=== PATIENT | female | born 1945 | race Caucasian/White ===

== ENCOUNTER → 2018-09-23 18:10 | Outpatient (CLI) | payer MEDICARE, OTHER | END | disposition home or self-care (01) | LOC: D.MAMMO 11:30 | DX: N63.11 Unspecified lump in the right breast, upper outer quadrant (principal); R92.8 Other abnormal and inconclusive findings on diagnostic imaging of breast ==

== ENCOUNTER 2019-12-27 16:39 | Inpatient (IN) | payer MEDICARE, OTHER ==
[~2019-12-27] VITALS: Ht 152.4 cm; Wt 66.7 kg
[2019-12-27] MEDS ORDERED: MEDROL DOSE PACK4 MG PO (16:48)
[2019-12-27] MEDS ORDERED: COZAAR100 MG PO (16:48)
[2019-12-27] MEDS ORDERED: HYDROCHLOROTHIA25 MG PO (16:48)
[2019-12-27] MEDS ORDERED: PLAVIX75 MG PO (16:49)
[2019-12-27] MEDS ORDERED: MUCINEX600 MG PO (16:49)
[2019-12-27] MEDS ORDERED: IPRAT-ALBUT 0.5-3 ML UPD (16:50)
[2019-12-27 17:28] LABS: BASOPHILS 0.2 % (0-2); EOSINOPHILS 0.3 % (0-7); HEMATOCRIT 47.1 % (36.0-48.0); IMMATURE GRANULOCYTES 0.3 % (0-5); LYMPHOCYTES 21.1 % (15-50); MCH 29.4 pg (26.0-34.0); MCV 86.6 fL (80.0-100.0); MONOCYTES 9.6 % (2-11); NEUTROPHILS 68.5 % (40-80); PLATELET COUNT 313 10x3/uL (130-400); RBC 5.44 10x6/uL (4.00-5.40); RDW 12.9 % (11.5-14.5); WBC 10.7 10x3/uL (4.8-10.8)
[2019-12-27 17:38] LABS: APTT 29.5 SECONDS (22.8-39.4); INR 0.96 (0.85-1.17); PROTIME 12.7 SECONDS (11.6-15.0)
--- NOTE | 2019-12-27 17:42 | NUR ---
ALL DOCUMENTATION IS BY IWONA DUFFY. WAS UNDER MACIEJ OCHOA NAME IN COMPUTER.
[2019-12-27 17:52] LABS: CALC OSMOLALITY 258 mosm/kg (275-300); CALCIUM 9.3 mg/dL (8.5-10.1); CARBON DIOXIDE 29.3 mmol/L (21.0-32.0); CHLORIDE - SERUM 90 mmol/L (98-107); CREATININE - SERUM 0.7 mg/dL (0.6-1.3); GLUCOSE 122 mg/dL (74-106); POTASSIUM - SERUM 3.9 mmol/L (3.5-5.1); SODIUM 127 mmol/L (136-145); UREA NITROGEN 22 mg/dL (7-18); eGFR NON AFRICAN AMERICAN 87 mL/min (90-120)
[2019-12-27 18:10] LABS: ALKALINE PHOSPHATASE 108 U/L (30-120); ALT (SGPT) 26 U/L (10-68); BILIRUBIN - TOTAL 0.71 mg/dL (0.2-1.3); CKMB 2.8 U/L (0.0-3.6); CREATINE KINASE 93 UL (21-215); PRO BNP 492 pg/mL (0-125); PROTEIN - SERUM 7.9 g/dL (6.4-8.2); TROPONIN-I < 0.017 ng/mL (0.000-0.060)
--- NOTE | 2019-12-27 19:36 | NUR ---
RT AT PT BEDSIDE
[2019-12-27 20:00] VITALS: BP 142/76; BP 147/71
--- NOTE | 2019-12-27 20:43 | NUR ---
PT UPDATED ON PLAN OF CARE. NO S/S OF ACUTE DISTRESS NOTED.
--- NOTE | 2019-12-27 20:54 | NUR ---
DR GREGORIO AT PT BEDSIDE
--- NOTE | 2019-12-27 21:00 | NUR ---
ADMIT TO ROOM 2126 FROM ER VIA WHEELCHAIR. ALERT/ORIENTED. AMBULATORY WITH SBA. ASSISTED TO BED AND TO CHANGE INTO HER PAJAMAS. UP TO BATHROOM TO VOID AND HAVE A BOWEL MOVEMENT. THIS LEVEL OF ACTIVITY CAUSED SOB AND DYSPNEA. BACK TO BED AND O2 @ 2L/NC IN PLACE. RESPIRATORY IN ROOM STARTING A BREATHING TREATMENT AT THIS TIME.
[2019-12-28] VITALS: BP 135/68
[2019-12-28 00:28] VITALS: BP 147/71; BMI 28.7
[2019-12-28 04:00] VITALS: BP 172/74
[2019-12-28 06:54] LABS: BASOPHILS 0 % (0-2); EOSINOPHILS 0 % (0-7); HEMOGLOBIN 15.5 g/dL (12-16); IMMATURE GRANULOCYTES 0.3 % (0-5); LYMPHOCYTES 10.4 % (15-50); MCH 29.8 pg (26.0-34.0); MCHC 34.4 g/dL (31.0-37.0); MCV 86.4 fL (80.0-100.0); MEAN PLATELET VOLUME 9.1 fL (7.4-10.4); NEUTROPHILS 85.3 % (40-80); PLATELET COUNT 281 10x3/uL (130-400); RBC 5.21 10x6/uL (4.00-5.40); RDW 12.9 % (11.5-14.5); WBC 6.5 10x3/uL (4.8-10.8)
[2019-12-28 07:02] LABS: CALC OSMOLALITY 263 mosm/kg (275-300); CALCIUM 9.1 mg/dL (8.5-10.1); CARBON DIOXIDE 28.7 mmol/L (21.0-32.0); CHLORIDE - SERUM 93 mmol/L (98-107); CREATININE - SERUM 0.7 mg/dL (0.6-1.3); GLUCOSE 142 mg/dL (74-106); POTASSIUM - SERUM 4.3 mmol/L (3.5-5.1); SODIUM 129 mmol/L (136-145); UREA NITROGEN 21 mg/dL (7-18); eGFR NON AFRICAN AMERICAN 87 mL/min (90-120)
--- NOTE | 2019-12-28 08:51 | NUR ---
AM MEDS GIVEN AT THIS TIME. PT EATING BREAKFAST, A/O X4, A LITTLE SOB ON 3L, ENCOURAGE PT TO TAKE DEEP BREATHS. PT DENIES ANY NEEDS AT THIS TIME. CALL LIGHT IN REACH, NAD NOTED, WILL CONTINUE TO MONITOR.
[2019-12-28 10:37] VITALS: BP 139/73
[2019-12-28 12:16] VITALS: Ht 152.4 cm; Wt 66.7 kg
[2019-12-28 14:17] VITALS: BP 114/69
--- NOTE | 2019-12-28 19:35 | NUR ---
ASSESSMENT COMPLETE, PT A&O. SITTING UP ON SIDE OF BED, RESPERATIONS EVEN ON O2 AT 3 LITERS VIA NC. IV TO LEFT ARM SL, SITE CLEAN AND DRY. PT ASKING FOR XANAX AT BED TIME, INFORMED PT THAT IF MEDICATION IS ORDERED THEN I WILL BRING IT WITH [facility] MED[facility]. NO OTHER NEEDS VOICED AT THIS TIME, BED LOW, CL IN REACH.
[2019-12-28 20:00] VITALS: BP 111/46
--- NOTE | 2019-12-28 23:28 | NUR ---
PHP MYSQL WEB DEVELOPER AT BED SIDE TO OBTAIN VITALS.
[2019-12-29] VITALS: BP 100/58
[2019-12-29 04:00] VITALS: BP 112/57
[2019-12-29 06:32] LABS: CALC OSMOLALITY 270 mosm/kg (275-300); CALCIUM 8.2 mg/dL (8.5-10.1); CARBON DIOXIDE 25.2 mmol/L (21.0-32.0); CHLORIDE - SERUM 101 mmol/L (98-107); CREATININE - SERUM 0.6 mg/dL (0.6-1.3); GLUCOSE 128 mg/dL (74-106); POTASSIUM - SERUM 4.3 mmol/L (3.5-5.1); SODIUM 132 mmol/L (136-145); UREA NITROGEN 24 mg/dL (7-18); eGFR NON AFRICAN AMERICAN > 90 mL/min (90-120)
--- NOTE | 2019-12-29 06:59 | NUR ---
ASSESSMENT DONE. DENIES NEEDS
[2019-12-29 07:50] LABS: BASOPHILS 0 % (0-2); EOSINOPHILS 0 % (0-7); HEMATOCRIT 38.2 % (36.0-48.0); HEMOGLOBIN 12.7 g/dL (12-16); IMMATURE GRANULOCYTES 0.4 % (0-5); MCH 29.5 pg (26.0-34.0); MCHC 33.2 g/dL (31.0-37.0); MEAN PLATELET VOLUME 9.4 fL (7.4-10.4); MONOCYTES 5.6 % (2-11); PLATELET COUNT 257 10x3/uL (130-400); RDW 13.3 % (11.5-14.5)
[2019-12-29 07:51] LABS: MCV 88.8 fL (80.0-100.0); WBC 18.7 10x3/uL (4.8-10.8)
--- NOTE | 2019-12-29 08:12 | HP ---
PATIENT: CARLOS WEEKS MEDICAL RECORD: [id number] ACCOUNT: [id number] LOCATION:[address] : [birth year] ADMISSION DATE: 12/27/19 PCP: VIKY ROMAN MD HISTORY AND PHYSICAL EXAMINATION REASON FOR ADMISSION: Shortness of breath and cough. HISTORY OF PRESENT ILLNESS: The patient is a 74-year-old female with history of asthma and smoking, who approximately on November 03 did a tele-med comfort with Dr. Roman for upper respiratory symptoms. She was placed on a Medrol Dosepak and Mucinex. She has never really got any better, became much worse 6 days ago. [place] given IM injection of a steroid and Medrol Dosepak, but no antibiotics. She continued to have cough and wheezing audibly but no sputum production or fever. She denied any loss of sense of taste or smell as well. Her family, i.e., her son who lives with her encouraged her to come to the hospital today because her breathing got much worse and she became "scared." She came by ambulance with supplemental oxygen. PAST MEDICAL HISTORY: Lifelong asthma, nicotine abuse, she has a 85-sjag-clrh history of smoking quit recently, essential hypertension, allergic rhinitis, remote DVT, and lumbago. PAST SURGICAL HISTORY: Negative. HOME MEDICATIONS: Losartan HCT 100/25 one p.o. q.a.m., Combivent Respimat inhaler 1 puff 4 times daily, cyclobenzaprine 1 p.o. t.i.d. p.r.n. low back pain, DuoNeb updrafts one q.3 hours for the last week, Flonase nasal spray 1 spray each nostril daily, Advair Diskus 250/50 one puff b.i.d., Plavix 75 mg a day, Astelin nasal spray 1 squirt in nostrils daily. FAMILY HISTORY: Father of heart disease. Brother had heart disease in his early 30s. SOCIAL HISTORY: She is a 2. Her a few years ago. She is retired from [employer]. She has a daughter who is a pediatric RAIL CAR DRIVER in [place], [place] and a son who lives with her and she is in his 40s. She denies alcohol use greater than 21-ridd-wcti history of smoking. ALLERGIES: Only to respiratory allergens. No meds. REVIEW OF SYSTEMS: GENERAL: She has been fatigued without fevers and had fair appetite. HEENT: No recent visual change, sinus congestion, or sore throat. She does wear glasses to read. RESPIRATORY: She has had audible wheezes with some coughing and air hunger over the last month, worse over the last week. Denies sputum production or hemoptysis. CARDIAC: No palpitations, PND, orthopnea, claudication, or history of angina. GASTROINTESTINAL: No nausea, vomiting, change in stools or blood per rectum. GENITOURINARY: No incontinence. GYNECOLOGIC: No vaginal bleeding. ENDOCRINE: Denies polyuria, polydipsia, heat or cold intolerance. NEUROLOGIC: Denies history of stroke, TIA, or vascular headaches. INTEGUMENT: No rash or itching. HISTORY AND PHYSICAL [id number] CARLOS WEEKS PSYCHIATRIC: Denies depressed mood. PHYSICAL EXAMINATION: VITAL SIGNS: Her temperature is 97.5 Fahrenheit orally, pulse 95 and regular, respirations are 24, blood pressure 174/94 with a sat 97% on 4 liters. HEENT: Her eyes are clear. Pupils are reactive. NECK: No bruits or masses. CHEST: Shows slight retractions. She has audible wheezes in the room, but is moving air bilaterally. Marked expiratory wheezes, no crackles. HEART: Tachycardic without murmur or gallop. ABDOMEN: Soft, nontender, no organomegaly. EXTREMITIES: No CC and E. NEUROLOGICAL: Oriented to person, place, and time. Cranial nerves are intact. Memory is intact. Gait was not tested. LABORATORY DATA: Sodium of 127, BUN and creatinine of 22 and 0.7, glucose is 122 nonfasting. Cardiac enzymes are negative. D-dimer mildly elevated at 0.38. White count is 10.7 thousand, H and H of 16 and 47.1. Normal diff. Chest x-ray shows no acute cardiopulmonary disease. CT of the chest shows mild emphysema, spiculated nodule in the right breast at posterior depth. ASSESSMENT: 1. Asthma with COPD exacerbation and hypoxemia 2. Essential hypertension. 3. Diuretic-induced hyponatremia. 4. Nicotine abuse. 5. Possible right breast mass. PLAN: The patient will be admitted for updrafts, IV steroids, IV fluids, antibiotics as well. Further workup pending clinical course. TRANSINT:[id number] Voice Confirmation ID: [id number] DOCUMENT ID: [id number] JOSE GREGORIO MD at 0812 CC: [id number] DICTATION DATE: 12/27/192114 OSHA INSPECTOR: 12/27/192226 ADM IN [place] [id number] [place] [id number]
--- NOTE | 2019-12-29 09:11 | NUR ---
I have reviewed this patient and I concur with the Shift Assessment completed by the Licensed Practical Nurse today this shift.
[2019-12-29 09:30] VITALS: BP 128/65
[2019-12-29 11:52] VITALS: BP 127/58
--- NOTE | 2019-12-29 17:09 | NUR ---
WITHOUT CHANGES OR DISTRESS NOTED AT THIS TIME. DENIES NEEDS
[2019-12-29 17:47] VITALS: BP 127/79
[2019-12-29 20:00] VITALS: BP 111/62
[2019-12-30] VITALS: BP 100/62
--- NOTE | 2019-12-30 02:40 | NUR ---
I have reviewed this patient and I concur with the Shift Assessment completed by the Licensed Practical Nurse today this shift.
[2019-12-30 04:00] VITALS: BP 114/75
[2019-12-30 06:32] LABS: BASOPHILS 0 % (0-2); EOSINOPHILS 0 % (0-7); HEMATOCRIT 39.9 % (36.0-48.0); HEMOGLOBIN 12.8 g/dL (12-16); IMMATURE GRANULOCYTES 0.5 % (0-5); MCH 29.1 pg (26.0-34.0); MCHC 32.1 g/dL (31.0-37.0); MCV 90.7 fL (80.0-100.0); MEAN PLATELET VOLUME 9.4 fL (7.4-10.4); MONOCYTES 4.8 % (2-11); NEUTROPHILS 91.7 % (40-80); PLATELET COUNT 267 10x3/uL (130-400); RDW 13.6 % (11.5-14.5); WBC 15.3 10x3/uL (4.8-10.8)
[2019-12-30 07:00] LABS: CALC OSMOLALITY 277 mosm/kg (275-300); CALCIUM 7.9 mg/dL (8.5-10.1); CARBON DIOXIDE 27.6 mmol/L (21.0-32.0); CHLORIDE - SERUM 103 mmol/L (98-107); CREATININE - SERUM 0.7 mg/dL (0.6-1.3); GLUCOSE 127 mg/dL (74-106); POTASSIUM - SERUM 4.1 mmol/L (3.5-5.1); SODIUM 136 mmol/L (136-145); UREA NITROGEN 25 mg/dL (7-18); eGFR NON AFRICAN AMERICAN 87 mL/min (90-120)
--- NOTE | 2019-12-30 07:24 | NUR ---
ASSESSMENT DONE. DENIES NEEDS
[2019-12-30] MEDS ORDERED: NORVASC5 MG PO ×2 (08:34→09:32)
[2019-12-30] MEDS ORDERED: LEVAQUIN750 MG PO ×2 (08:35→09:32)
[2019-12-30] MEDS ORDERED: MEDROL DOSE PACK4 MG PO ×2 (08:36→09:33)
--- NOTE | 2019-12-30 09:21 | NUR ---
NO PHARMACY NAME UPON ADMIT FOR DR ROMAN TO SEND D/C MEDS TO. I ASKED THE PATIENT AND SHE [facility]. THIS IS PUT INTO THE SYSTEM AND I WILL CALL THE NEW MEDS IN.
[2019-12-30 09:25] VITALS: BP 132/56
--- NOTE | 2019-12-30 09:28 | NUR ---
I have reviewed this patient and I concur with the Shift Assessment completed by the Licensed Practical Nurse today this shift.
--- NOTE | 2019-12-30 12:30 | NUR ---
DC GIVEN TO PT
--- NOTE | 2019-12-30 12:35 | NUR ---
Nutrition Follow-up: Good appetite/PO intake. Ate ~100% of breakfast this AM. Noted plans to d/c today. Diet: Cardiac PO intake: 50-100% Wt: 147# (12/27) Last BM: 12/28 Labs noted: Glu 127, Ca 7.9 Meds noted: NS @ 125, Pepcid, Solumedrol -RD following.
--- NOTE | 2019-12-30 13:53 | NUR ---
DC HOME PER PERSONAL CAR
--- NOTE | 2019-12-30 15:16 | MORECARE ---
CASE MANAGEMENT DISCHARGE SUMMARY PATIENT: CARLOS WEEKS UNIT: [id number] ADM DATE: 12/27/19 AGE: 74 : 45 SEX: F ROOM/BED: D.1518 AUTHOR: ROSARIO TARANGO PHYSICIAN: REFERRING PHYSICIAN: VIKY ROMAN MD DATE OF SERVICE: 12/30/19 Discharge Plan Patient Name: CARLOS WEEKS [facility] [facility] 1945 Planned Disposition: Home Anticipated Discharge Date: Discharge Date: 12/30/2019 Expected LOS: 0 Initial Reviewer: [email or web address] Initial Review Date: 12/27/2019 Generated: 12/30/19 4:15 pm DCPIA - Discharge Planning Initial Assessment Updated by [email or web address]: Aria Hsu on 12/30/19 3:10 pm * Is the patient Alert and Oriented? Yes * How many steps to enter\exit or inside your home? 0/0 * PCP Isrrael * Pharmacy [facility] * Preadmission Environment Home Alone * ADLs Independent * Equipment Nebulizer * List name and contact numbers for known caregivers / representatives who currently or will assist patient after discharge: [facility] [phone] * Verbal permission to speak to the caregivers and representatives has been obtained from the patient. Yes * Community resources currently utilized None * Additional services required to return to the preadmission environment? Yes * Can the patient safely return to the preadmission environment? Yes * Has this patient been hospitalized within the prior 30 days at any hospital? No External Providers External Provider: [facility] Next Contact Date: Service Request Date: Service Type: Resolution: Reviewer: Comments: Patient Name: CARLOS WEEKS Page [id number] at 1516 All edits/amendments must be made on the electronic document DICTATION DATE: 12/30/191514 DORMITORY MAID: JEREMY 12/30/19 151 RPT#: [id number] DC DATE:12/30/19 STATUS: DIS IN [facility] [address] [place] [address] END OF REPORT
--- NOTE | 2019-12-30 15:27 | MORECARE ---
CASE MANAGEMENT DISCHARGE SUMMARY PATIENT: CARLOS WEEKS UNIT: [id number] ADM DATE: 12/27/19 AGE: 74 : 45 SEX: F ROOM/BED: D.5624 AUTHOR: EMELINA,DOC PHYSICIAN: REFERRING PHYSICIAN: VIKY ROMAN MD DATE OF SERVICE: 12/30/19 Discharge Plan Patient Name: CARLOS WEEKS Facility: [facility]:[place] : 1945 Planned Disposition: Home Anticipated Discharge Date: Discharge Date: 12/30/2019 Expected LOS: 0 Initial Reviewer: [email or web address] Initial Review Date: 12/27/2019 Generated: 12/30/19 4:26 pm Comments DCP- Discharge Planning Updated by [email or web address]: Aria Hsu on 12/30/19 2:[address] Patient Name: CARLOS WEEKS Encounter No: [id number] : 1945 Primary Insurance: MEDICARE A & B Anticipated DC Date: Planned Disposition: Home External Planned Provider: : DCP follow-up note: Nursing completed walk test, resting saturation is 86%. Faxed referral to [facility]. Patient other needs for home health. Patient and family in agreement with discharge plan. No changes to plan. Patient can dc when oxygen is delivered. DC IMM delivered, explained, signed by the patient, and placed in his chart. Signed form also left with patient. Aria Hsu DCP- Discharge Planning Updated by [email or web address]: Aria Hsu on 12/30/19 2:[address] Patient Name: CARLOS WEEKS Admission Status: ER Accout number: [id number] Admission Date: 12-27-2019 : 1945 Admission Diagnosis: Attending: VIKY ROMAN Current LOS: 3 Anticipated DC Date: Planned Disposition: Home Primary Insurance: MEDICARE A & B Late entry. assessment completed 12/29/19 at 0925 Discharge Planning Comments: CM met with patient to complete initial dc planning assessment. CM educated patient on the CM role and verbal consent given by patient to complete assessment. CM verified patient's address, phone number, and emergency contact phone numbers. Patient lives at home independently, and is able to complete all ADL'S without assistance. At discharge patient plans to return home and feels this is a safe discharge. CM discussed availability of home health, and rehab services. Patient currently on 2 to 3 liters continuous 02 and becomes dyspneic with minimal exertion. Will need walk test for home and portable oxygen. LAURIE sighed for [facility]. Pt states she already gets nebulizer medications from there. Patient denied known discharge needs at this time. Transportation provider at discharge will be Jose (irma) [phone]. CM will continue to follow and will assist as needed with dc plans/needs. Telephoto Engineer: Aria Hsu DCPIA - Discharge Planning Initial Assessment Updated by [email or web address]: Aria Hsu on 12/30/19 3:10 pm * Is the patient Alert and Oriented? Yes * How many steps to enter\exit or inside your home? 0/0 * PCP Isrrael * [facility] [place] * Preadmission Environment Home Alone * ADLs Independent * Equipment Nebulizer * List name and contact numbers for known caregivers / representatives who currently or will assist patient after discharge: Jose [phone] * Verbal permission to speak to the caregivers and representatives has been obtained from the patient. Yes * Community resources currently utilized None * Additional services required to return to the preadmission environment? Yes * Can the patient safely return to the preadmission environment? Yes * Has this patient been hospitalized within the prior 30 days at any hospital? No Last DP export: 12/30/19 2:16 p Patient Name: CARLOS WEEKS Page [id number] at 1527 All edits/amendments must be made on the electronic document DICTATION DATE: 12/30/19 1526 APPAREL PATTERNMAKER: JEREMY 12/30/19 1526 RPT#: [id number] DC DATE:12/30/19 STATUS: DIS IN [facility] [address] [place] [address] END OF REPORT
== END 2019-12-30 13:54 | disposition home or self-care (01) | DRG 202 ==
LOC: D.ER 16:39 → D.M2 19:52
PROVIDERS: Emergency Medicine; Family Medicine; ADMIT Family Medicine; ATTEND Family Medicine
DX: J20.9 Acute bronchitis, unspecified (principal); J44.0 Chronic obstructive pulmonary disease with (acute) lower respiratory infection; E87.1 Hypo-osmolality and hyponatremia; J44.1 Chronic obstructive pulmonary disease with (acute) exacerbation; R09.02 Hypoxemia; T50.2X5A Adverse effect of carbonic-anhydrase inhibitors, benzothiadiazides and other diuretics, initial encounter; N63.10 Unspecified lump in the right breast, unspecified quadrant

== ENCOUNTER 2020-01-07 13:00 | Outpatient (CLI) | payer MEDICARE, OTHER ==
[2019-12-28 12:16] VITALS: BMI 28.7
[~2020-01-07 13:00] MED LIST: COZAAR100 MG PO; HYDROCHLOROTHIA25 MG PO; IPRAT-ALBUT 0.5-3 ML UPD; LEVAQUIN750 MG PO; MEDROL DOSE PACK4 MG PO; MUCINEX600 MG PO; NORVASC5 MG PO; PLAVIX75 MG PO
== END 2020-01-07 13:30 | disposition home or self-care (01) ==
LOC: D.MAMMO 13:00
PROVIDERS: ATTEND Family Medicine
DX: N63.21 Unspecified lump in the left breast, upper outer quadrant (principal)

== ENCOUNTER → 2020-01-27 12:25 | Outpatient (CLI) | payer MEDICARE, OTHER ==
[2019-12-28 12:16] VITALS: BMI 28.7
== END | disposition home or self-care (01) ==
LOC: D.US 12:25
PROVIDERS: ATTEND Family Medicine
DX: N63.20 Unspecified lump in the left breast, unspecified quadrant (principal); N63.10 Unspecified lump in the right breast, unspecified quadrant; E66.3 Overweight; E87.1 Hypo-osmolality and hyponatremia; J44.1 Chronic obstructive pulmonary disease with (acute) exacerbation; Z68.28 Body mass index [BMI] 28.0-28.9, adult